=== PATIENT | female | born 1950 | race Two or more races ===

== ENCOUNTER 2019-03-13 06:15 | Day surgery (SDC) | payer OTHER ==
[~2019-03-13 06:15] MED LIST: ADULT LOW DOSE81 M1 PO; GLUMETZA500 MG PO; HYDROCH PO; SYNTHROID88 MCG PO; ZESTRIL40 M1; ZETIA10 MG PO
== END 2019-03-13 15:10 | disposition home or self-care (01) ==
LOC: CIR.AMB 06:15 → ADM 10:00 → CIR.AMB 10:00
DX: M75.121 Complete rotator cuff tear or rupture of right shoulder, not specified as traumatic (principal); M75.21 Bicipital tendinitis, right shoulder
CPT/HCPCS: 29827; 23406; 29823; 29826; C1776

== ENCOUNTER 2019-10-02 06:00 | Day surgery (SDC) | payer OTHER ==
[~2019-10-02 06:00] MED LIST changes: +LIPITOR40 MG PO
== END 2019-10-02 11:20 | disposition home or self-care (01) ==
LOC: CIR.AMB 06:00 → ADM 11:00 → CIR.AMB 11:20
PROVIDERS: ATTEND Orthopaedic Surgery
DX: M75.01 Adhesive capsulitis of right shoulder (principal); Z20.828 Contact with and (suspected) exposure to other viral communicable diseases